=== PATIENT | female | born 1980 | race Caucasian/White ===

== ENCOUNTER 2018-08-21 20:45 | Emergency (ER) | payer BC, MEDICAID ==
[2018-08-21] MEDS ORDERED: Acetaminophen TAB* 325 MG PO ONE (23:25)
[2018-08-21 23:53] LABS: Hematocrit 42 % (35-47); Mean Corpuscular HGB Conc 34 g/dl (31-36); Mean Corpuscular Hemoglobin 33 pg (27-31); Mean Corpuscular Volume 98 fL (80-97); Mean Platelet Volume 7.2 fL (7.4-10.4); Platelet Count 347 10^3/ul (150-450); Red Blood Count 4.23 10^6/ul (4.00-5.40); Red Cell Distribution Width 14 % (10.5-15)
[2018-08-22 00:13] LABS: ALT 7 U/L (7-52); AST 10 U/L (13-39); Albumin/Globulin Ratio 1.2 (1-3); Alkaline Phosphatase 57 U/L (34-104); Anion Gap 7 mmol/L (2-11); BUN/Creatinine Ratio 10.8 (8-20); Blood Urea Nitrogen 7 mg/dL (6-24); C Reactive Protein 16.72 mg/L (<8.01); CO2 Carbon Dioxide 26 mmol/L (22-32); Calcium 9.3 mg/dL (8.6-10.3); Chloride 105 mmol/L (101-111); EGFR Non-African American 101.5 (>60); Globulin 3.3 g/dL (2-4); Glucose 109 mg/dL (70-100); Potassium 4.1 mmol/L (3.5-5.0); Sodium 138 mmol/L (135-145); Total Protein 7.3 g/dL (6.4-8.9)
[2018-08-22] MEDS ORDERED: Iohexol 300* (CONTRAST) 10 ML SDV IV ONE (00:17)
[2018-08-22 00:19] LABS: HCG Pregnancy < 0.60 mIU/mL
[2018-08-22 00:29] LABS: ABS Basophils 0.1 10^3/ul (0-0.2); ABS Eosinophils 0 10^3/ul (0-0.6); ABS Lymphocytes 1.1 10^3/ul (1.0-4.8); ABS Monocytes 0.5 10^3/ul (0-0.8); ABS Neutrophils 9.2 10^3/ul (1.5-7.7); ABS Nucleated RBC 0 10^3/ul
[2018-08-22 00:31] LABS: ABS Neutrophils 9.6 10^3/ul (1.5-7.7); Immature Granulocytes 1 % (0-9); Lymphocytes % 7 %; Monocytes % 3 %; Neutrophil % 86 %; Variant Lymph % 1 % (0-6)
[2018-08-22 00:32] LABS: ABS Basophils 0.2 10^3/ul (0-0.2)
--- NOTE | 2018-08-22 02:33 | ED ---
Respiratory - HPI Summary HPI Summary: Patient with history of cough, low-grade fever, myalgia sent by urgent care to ED for further evaluation of concerning find on chest x-ray. Patient states symptoms 3 days. Denies BURR, ear pain, nasal congestion, neck stiffness, sore throat, CP, SOB, N/V/D, abdominal pain, change in urine, change in BM. Medical history is none. Pack-a-day smoker. - History of Current Complaint Chief Complaint: EDUpperRespComplaint Stated Complaint: COUGH/FEVER Time Seen by Provider: 08/21/18 23:13 Hx Obtained From: Patient Onset/Duration: Lasting Days Timing: Constant Initial Severity: Moderate Current Severity: Moderate Pain Intensity: 4 Character: Cough (Productive) Sputum Amount: Small Sputum Color: Yellow Aggravating Factor(s): Nothing Alleviating Factor(s): Nothing Associated Signs and Symptoms: Fever - Allergy/Home Medications Allergies/Adverse Reactions: Allergies Allergy/AdvReac Type Severity Reaction Status Date / Time No Known Allergies Allergy Verified 08/21/18 21:01 PMH/Surg Hx/FS Hx/Imm Hx Endocrine/Hematology History: Denies: Hx Anticoagulant Therapy Cardiovascular History: Denies: Hx Cardiac Arrest History: Denies: Hx Dialysis Sensory History: Denies: Hx Eye Prosthesis Neurological History: Denies: Hx Developmental Delay Psychiatric History: Denies: Hx Autism Infectious Disease History: No Infectious Disease History: Denies: Traveled Outside the [place] in Last 30 Days - Family History Known Family History: Positive: Unknown - Social History Lives: With Family Alcohol Use: Rare Substance Use Type: Reports: None Smoking Status (MU): Heavy Every Day Tobacco Smoker Review of Systems Positive: Fever Eyes: Negative ENT: Negative Cardiovascular: Negative Positive: Cough Gastrointestinal: Negative Genitourinary: Negative Positive: Myalgia Skin: Negative Neurological: Negative Psychological: Normal All Other Systems Reviewed And Are Negative: Yes Physical Exam Triage Information Reviewed: Yes Vital Signs On Initial Exam: Initial Vitals Temp Pulse Resp BP Pulse Ox 100.5 F 112 20 114/71 99 08/21/18 20:56 08/21/18 20:56 08/21/18 20:56 08/21/18 20:56 08/21/18 20:56 Vital Signs Reviewed: Yes Appearance: Positive: Well-Appearing Skin: Positive: Warm Head/Face: Positive: Normal Head/Face Inspection Eyes: Positive: Normal ENT: Positive: Normal ENT inspection Neck: Positive: Supple Respiratory/Lung Sounds: Positive: Clear to Auscultation Cardiovascular: Positive: Normal Pelvic Exam: Positive: External Exam Normal Musculoskeletal: Positive: Normal Neurological: Positive: Normal Psychiatric: Positive: Normal AVPU Assessment: Alert - [place] Coma Scale Best Eye Response: 4 - Spontaneous Best Motor Response: 6 - Obeys Commands Best Verbal Response: 5 - Oriented Coma Scale Total: 15 Diagnostics - Vital Signs Vital Signs Temp Pulse Resp BP Pulse Ox 08/21/18 23:22 94 98 08/21/18 23:20 106 115/79 98 08/21/18 20:56 100.5 F 112 20 114/71 99 - Laboratory Lab Results: Lab Results 08/21/18 08/21/18 08/21/18 Range/Units 23:40 23:40 23:42 WBC 11.0 H (3.5-10.8) 10^3/ul RBC 4.23 (4.00-5.40) 10^6/ul Hgb 14.0 (12.0-16.0) g/dl Hct 42 (35-47) % MCV 98 H (80-97) fL MCH 33 H (27-31) pg MCHC 34 (31-36) g/dl RDW 14 (10.5-15) % Plt Count 347 (150-450) 10^3/ul MPV 7.2 L (7.4-10.4) fL Neut % (Auto) Not Reportable Lymph % (Auto) Not Reportable [place] % (Auto) Not Reportable Eos % (Auto) Not Reportable Baso % (Auto) Not Reportable Absolute Neuts (auto) 9.2 H (1.5-7.7) 10^3/ul Absolute Lymphs (auto) 1.1 (1.0-4.8) 10^3/ul Absolute Monos (auto) 0.5 (0-0.8) 10^3/ul Absolute Eos (auto) 0 (0-0.6) 10^3/ul Absolute Basos (auto) 0.1 (0-0.2) 10^3/ul Absolute Nucleated RBC 0 10^3/ul Immature Gran % 1 (0-9) % Neutrophils % 86 % Band Neutrophils % 1 (0-8) % Lymphocytes % 7 % Reactive Lymphs % 1 (0-6) % Monocytes % 3 % Basophils % 2 % Nucleated RBC % Not Reportable Abs Neuts (Manual) 9.6 H (1.5-7.7) 10^3/ul Abs Lymphs (Manual) 0.9 L (1.0-4.8) 10^3/ul Abs Monocytes (Manual) 0.3 (0-0.8) 10^3/ul Abs Basophils (Manual) 0.2 (0-0.2) 10^3/ul Normal RBC Morphology Not Reportable Macrocytosis 2+ Hem Pathologist Commnt Pending Sodium 138 (135-145) mmol/L Potassium 4.1 (3.5-5.0) mmol/L Chloride 105 (101-111) mmol/L Carbon Dioxide 26 (22-32) mmol/L Anion Gap 7 (2-11) mmol/L BUN 7 (6-24) mg/dL Creatinine 0.65 (0.51-0.95) mg/dL Est GFR ( Amer) 122.8 (>60) Est GFR (Non-Af Amer) 101.5 (>60) BUN/Creatinine Ratio 10.8 (8-20) Glucose 109 H (70-100) mg/dL Lactic Acid 0.5 (0.5-2.0) mmol/L Calcium 9.3 (8.6-10.3) mg/dL Total Bilirubin 0.50 (0.2-1.0) mg/dL AST 10 L (13-39) U/L ALT 7 (7-52) U/L Alkaline Phosphatase 57 (34-104) U/L C-Reactive Protein 16.72 H (<8.01) mg/L Total Protein 7.3 (6.4-8.9) g/dL Albumin 4.0 (3.2-5.2) g/dL Globulin 3.3 (2-4) g/dL Albumin/Globulin Ratio 1.2 (1-3) Beta HCG, Quant < 0.60 mIU/mL Influenza A (Rapid) (Negative) Influenza B (Rapid) (Negative) 08/21/18 Range/Units 23:43 WBC (3.5-10.8) 10^3/ul RBC (4.00-5.40) 10^6/ul Hgb (12.0-16.0) g/dl Hct (35-47) % MCV (80-97) fL MCH (27-31) pg MCHC (31-36) g/dl RDW (10.5-15) % Plt Count (150-450) 10^3/ul MPV (7.4-10.4) fL Neut % (Auto) Lymph % (Auto) [place] % (Auto) Eos % (Auto) Baso % (Auto) Absolute Neuts (auto) (1.5-7.7) 10^3/ul Absolute Lymphs (auto) (1.0-4.8) 10^3/ul Absolute Monos (auto) (0-0.8) 10^3/ul Absolute Eos (auto) (0-0.6) 10^3/ul Absolute Basos (auto) (0-0.2) 10^3/ul Absolute Nucleated RBC 10^3/ul Immature Gran % (0-9) % Neutrophils % % Band Neutrophils % (0-8) % Lymphocytes % % Reactive Lymphs % (0-6) % Monocytes % % Basophils % % Nucleated RBC % Abs Neuts (Manual) (1.5-7.7) 10^3/ul Abs Lymphs (Manual) (1.0-4.8) 10^3/ul Abs Monocytes (Manual) (0-0.8) 10^3/ul Abs Basophils (Manual) (0-0.2) 10^3/ul Normal RBC Morphology Macrocytosis Hem Pathologist Commnt Sodium (135-145) mmol/L Potassium (3.5-5.0) mmol/L Chloride (101-111) mmol/L Carbon Dioxide (22-32) mmol/L Anion Gap (2-11) mmol/L BUN (6-24) mg/dL Creatinine (0.51-0.95) mg/dL Est GFR ( Amer) (>60) Est GFR (Non-Af Amer) (>60) BUN/Creatinine Ratio (8-20) Glucose (70-100) mg/dL Lactic Acid (0.5-2.0) mmol/L Calcium (8.6-10.3) mg/dL Total Bilirubin (0.2-1.0) mg/dL AST (13-39) U/L ALT (7-52) U/L Alkaline Phosphatase (34-104) U/L C-Reactive Protein (<8.01) mg/L Total Protein (6.4-8.9) g/dL Albumin (3.2-5.2) g/dL Globulin (2-4) g/dL Albumin/Globulin Ratio (1-3) Beta HCG, Quant mIU/mL Influenza A (Rapid) Negative (Negative) Influenza B (Rapid) Negative (Negative) Result Diagrams: 08/21/18 23:42 08/21/18 23:40 Lab Statement: Any lab studies that have been ordered have been reviewed, and results considered in the medical decision making process. - CT chest CT Interpretation Completed By: Radiologist - 4.3 x 4.7 pulmonary Mass in right lower lobe with enlarged subcarinal and right hilar lymph nodes with necrotic center, concerning for malignancy Disposition - Course Course Of Treatment: Patient with history of cough, low-grade fever, myalgia sent by urgent care to ED for further evaluation of concerning find on chest x- ray. Patient states symptoms 3 days. Denies UBRR, ear pain, nasal congestion, neck stiffness, sore throat, CP, SOB, N/V/D, abdominal pain, change in urine, change in BM. Medical history is none. Pack-a-day smoker. Physical exam unremarkable. Initial temperature 100.5, heart rate 112. Vital signs since within normal limits. WBC 11.0. Labs otherwise unremarkable. Influenza negative. CT chest positive for mass concerning for malignancy. Diagnosis viral syndrome. Advised patient follow up with oncology for biopsy of lung mass. Patient understands and approves of plan. - Diagnoses Provider Diagnoses: Viral syndrome, Mass of lung Discharge - Sign-Out/Discharge Documenting (check all that apply): Patient Departure - Discharge Plan Condition: Stable Disposition: HOME Patient Education Materials: Needle Biopsy of the Lung (ED), Viral Syndrome (ED ) Referrals: No Primary Care Phys,NOPCP [Primary Care Provider] - Elle De Santiago MD [Medical Doctor] - Additional Instructions: For viral syndrome drink plenty of fluids to help maintain hydration. Alternate ibuprofen 600 mg with Tylenol 650 mg every 3 hours for body aches and fever control. For biopsy of lung mass follow up with oncology Dr. De Santiago for further evaluation. Return to the ED for any new or worsening symptoms. - Billing Disposition and Condition Condition: STABLE Disposition: Home
[2018-08-22 03:06] VITALS: BP 124/74
== END 2018-08-22 03:05 | disposition home or self-care (01) ==
LOC: ED 20:45
DX: B34.9 Viral infection, unspecified (principal); R91.8 Other nonspecific abnormal finding of lung field; F17.200 Nicotine dependence, unspecified, uncomplicated; R59.0 Localized enlarged lymph nodes
CPT/HCPCS: 36415; 71260; 80053; 83605; 84702; 85025; 85060; 86140; 99282; A9270-GY; Q9967

== ENCOUNTER → 2018-08-27 11:46 | Day surgery (SDC) | payer BC ==
[~2018-08-27 11:46] MED LIST: Atracurium* 10 MG/ML 10 ML VIAL ONE; Buffered Lidocaine 0.9% SYRIN* 5 ML/SYR SYRINGE INTRADERM ONE; Dexamethasone IV* 4 MG/ML 1 ML (4 MG) IV SLOW PU ONE; Dexamethasone IV* 4 MG/ML 1 ML (4 MG) ONE; DiMENhydriNATE IV* 50 MG/ML VIAL IV PUSH PRN; Famotidine IV* 10 MG/ML 2 ML (20 mg) IV SLOW PU ONE; Famotidine IV* 10 MG/ML 2 ML (20 mg) ONE; Lactated Ringers 1000 ML Bag* 1,000 ML IV SCH; Levalbuterol 0.63MG/3ML NEB* UNIT OF USE INH ONE; Levalbuterol 1.25MG/0.5ML NEB ONE; Lidocaine 2% PF * 5 ML VIAL ONE; Metoprolol Tartrate IV* 1 MG/ML 5 ML VIAL ONE; Midazolam* 1 MG/ML 5 ML VIAL (5 MG) ONE; Naloxone* 0.4 MG/ML 1 ML VIAL IV PRN; Ondansetron INJ* 2 MG/ML VIAL IV PRN; Ondansetron INJ* 2 MG/ML VIAL ONE; Propofol* 10 MG/ML 20 ML BTL ONE; Scopolamine 1.5 mg* PATCH TRANSDERM PRN; fentaNYL* 50 MCG/ML 2 ML VIAL (100 MCG VIAL) IV PRN; fentaNYL* 50 MCG/ML 5 ML VIAL (250 MCG VIAL) ONE; oxyCODONE/Acetamin 5/325 MG* TAB PO PRN
[2018-08-27 15:19] VITALS: BP 117/80
--- NOTE | 2018-08-27 21:05 | PRO ---
BRONCHOSCOPY REPORT: DATE OF PROCEDURE: 08/27/18 - [facility] PROCEDURE PERFORMED: Bronchoscopy with endobronchial ultrasound-guided fine needle aspiration from station 7 and L4 lymph node. PREPROCEDURAL DIAGNOSIS: Lung mass, mediastinal adenopathy. POSTPROCEDURAL DIAGNOSIS: Lung cancer. ANESTHESIA: General anesthesia. ANESTHESIOLOGIST: Dr. Pena. DESCRIPTION OF PROCEDURE: Informed consent was obtained from the patient prior to the procedure after all the risks and benefits were thoroughly explained. The patient recently was being evaluated for cough, was found to have large lung mass. Appropriate time-out was agreed on by attending staff prior to the procedure. The patient was lying supine on operating room table. Flexible bronchoscope was then inserted through ET tube, ET tube positioning was confirmed to be 2 cm above the level of ewa. Bronchoscope was then advanced into the right bronchial tree, which was then inspected. Thick clear secretions were noted copious amounts on both sides and were suctioned out. No endobronchial lesions were noted. Bronchoscope was then advanced to left bronchial tree, which was inspected. No endobronchial lesions were noted. Thin secretions were noted and were suctioned. All airways were open and patent. Bronchoscope was then withdrawn and EBUS bronchoscope was inserted. Station 7 lymph node appeared to be significantly enlarged. Station 7 was then sampled with 6 passes. Rapid on-site evaluation revealed lymphatic tissue and malignant cells. Rest of specimen was placed in formalin for cell block. Bronchoscope was then advanced into the left bronchial tree and lymph nodes were inspected. No significantly enlarged lymph nodes were noted. L4 was minimally enlarged and measured about 0.4 cm and which was accessed with 2 passes. Rapid on-site evaluation revealed lymphatic tissue with no malignant cells. Rest of the specimen was placed in formalin. Bronchoscope was then withdrawn and regular bronchoscope was inserted for any bleeding. No significant bleeding noted and secretions were suctioned and bronchoscope was withdrawn. The patient was extubated and seen in Recovery in optimal condition. [id number]/[facility] #: [id number] [facility]
== END | disposition home or self-care (01) ==
LOC: OR 11:46
PROVIDERS: ATTEND Internal Medicine
DX: C77.1 Secondary and unspecified malignant neoplasm of intrathoracic lymph nodes (principal); C34.90 Malignant neoplasm of unspecified part of unspecified bronchus or lung; F17.210 Nicotine dependence, cigarettes, uncomplicated; R00.2 Palpitations; Z88.0 Allergy status to penicillin
CPT/HCPCS: 81445; 88172; 88173; 88177; 88305; 88341; 88342; 88360; A9270-GY; J1100; J2250; J2405; J2704; J3010; J3490

== ENCOUNTER 2018-09-10 11:10 | Day surgery (SDC) | payer BC ==
[~2018-09-10 11:10] MED LIST changes: +Acetaminophen TAB* 325 MG PO ONE; -Atracurium* 10 MG/ML 10 ML VIAL ONE; -Buffered Lidocaine 0.9% SYRIN* 5 ML/SYR SYRINGE INTRADERM ONE; +Buffered Lidocaine 1% SYRIN* 1 ML/SYRINGE INTRADERM ONE; -Dexamethasone IV* 4 MG/ML 1 ML (4 MG) IV SLOW PU ONE; -Dexamethasone IV* 4 MG/ML 1 ML (4 MG) ONE; -DiMENhydriNATE IV* 50 MG/ML VIAL IV PUSH PRN; -Famotidine IV* 10 MG/ML 2 ML (20 mg) IV SLOW PU ONE; -Famotidine IV* 10 MG/ML 2 ML (20 mg) ONE; -Levalbuterol 0.63MG/3ML NEB* UNIT OF USE INH ONE; -Levalbuterol 1.25MG/0.5ML NEB ONE; -Lidocaine 2% PF * 5 ML VIAL ONE; -Metoprolol Tartrate IV* 1 MG/ML 5 ML VIAL ONE; -Midazolam* 1 MG/ML 5 ML VIAL (5 MG) ONE; -Naloxone* 0.4 MG/ML 1 ML VIAL IV PRN; -Ondansetron INJ* 2 MG/ML VIAL IV PRN; -Ondansetron INJ* 2 MG/ML VIAL ONE; -Propofol* 10 MG/ML 20 ML BTL ONE; -Scopolamine 1.5 mg* PATCH TRANSDERM PRN; -fentaNYL* 50 MCG/ML 2 ML VIAL (100 MCG VIAL) IV PRN; -fentaNYL* 50 MCG/ML 5 ML VIAL (250 MCG VIAL) ONE; -oxyCODONE/Acetamin 5/325 MG* TAB PO PRN
[2018-09-10] MEDS ORDERED: fentaNYL* 50 MCG/ML 2 ML VIAL (100 MCG VIAL) ONE (11:26)
[2018-09-10] MEDS ORDERED: Midazolam* 1 MG/ML 2 ML VIAL (2 MG) ONE ×2 (11:26→12:39)
[2018-09-10] MEDS ORDERED: Lidocain 1% EPI 1:100,000 * 30 ML MDV ONE (11:29)
[2018-09-10] MEDS ORDERED: Lidocaine 1% INJ* 10 MG/ML 30 ML SDV ONE (11:32)
[2018-09-10] MEDS ORDERED: Clindamycin 900 MG/D5W BAG(*) 900 MG/50 ML BAG IVPB ONE (11:44)
[2018-09-10] MEDS ORDERED: Buffered Lidocaine 1% SYRIN* 1 ML/SYRINGE INTRADERM ONE (11:44)
[2018-09-10] MEDS ORDERED: Acetaminophen TAB* 325 MG ONE (11:44)
[2018-09-10] MEDS ORDERED: Famotidine IV* 10 MG/ML 2 ML (20 mg) ONE (12:16)
[2018-09-10] MEDS ORDERED: Ondansetron INJ* 2 MG/ML VIAL IV PRN (12:46)
[2018-09-10] MEDS ORDERED: Naloxone* 0.4 MG/ML 1 ML VIAL IV PRN (12:46)
[2018-09-10] MEDS ORDERED: DiMENhydriNATE IV* 50 MG/ML VIAL IV PUSH PRN (12:46)
[2018-09-10] MEDS ORDERED: diPHENhydraMINE IV* 50 MG/ML 1 ml VIAL (BENADRYL) IV PRN (12:46)
[2018-09-10] MEDS ORDERED: Acetaminophen TAB* 325 MG PO PRN (12:46)
[2018-09-10] MEDS ORDERED: PROCHLORPERAZINE INJ 5 MG/ML 2 ML VIAL IV PRN (12:46)
[2018-09-10] MEDS ORDERED: Levalbuterol 0.63MG/3ML NEB* UNIT OF USE INH PRN (12:46)
[2018-09-10] MEDS ORDERED: Propofol* 10 MG/ML 20 ML BTL ONE (12:59)
[2018-09-10] MEDS ORDERED: Lidocaine 2% PF * 5 ML VIAL ONE (12:59)
[2018-09-10] MEDS ORDERED: Ondansetron INJ* 2 MG/ML VIAL ONE (12:59)
[2018-09-10] MEDS ORDERED: oxyCODONE TAB* 5 MG TAB PO PRN (13:34)
--- NOTE | 2018-09-10 13:36 | BRIEFOPN ---
Brief Operative Note - Surgery Procedures: PRE/POSTOP DX: LUNG CA PROC: POWERPORT PLACEMENT SURG: MECENAS ASSIST: NONE ANES: LOCAL/MAC; MATT SPEC: NONE DRAIN/COMPL: NONE COND: STABLE TO RR FIND: LEFT SUBCLAVIAN PORT PLACED WITHOUT DIFFICULTY.
[2018-09-10 14:10] VITALS: BP 115/81
--- NOTE | 2018-09-30 20:14 | OP ---
CC: [facility] * DATE OF OPERATION: 09/10/18 - SDS DATE OF : 78 SURGEON: Dereck Laird MD DIET SUPERVISOR: None. ANESTHESIOLOGIST: Dr. Robert. ANESTHESIA: Local MAC. PRE-OP DIAGNOSES: Lung cancer. POST-OP DIAGNOSES: Lung cancer. OPERATIVE PROCEDURE: PowerPort placement. ESTIMATED BLOOD LOSS: Minimal. IV FLUIDS: Crystalloid. SPECIMENS: None. DRAINS: None. COMPLICATIONS: None. COUNTS: The instrument, needle, and sponge counts were correct. DESCRIPTION OF PROCEDURE: The patient was brought to the operating room and placed on the table supine. Sequential compression devices were placed in both lower extremities. The patient was administered intravenous sedation. Her chest and neck were prepped and draped in the usual sterile fashion and time- out was performed. Local anesthetic was infiltrated into the left chest using a left subclavian approach. After accessing the left subclavian vein without difficulty, a guidewire was placed into the superior vena cava confirmed under fluoroscopic guidance. Needle was removed and then additional local anesthetic was infiltrated into the skin and soft tissue and a pocket was created for the PowerPort in the left upper chest. The 8-[place] PowerPort was then back tunneled to the pocket having made a counter incision at the guidewire insertion site. The peel-away sheath and dilator were then advanced under fluoroscopic guidance over the guidewire into the superior vena cava. The guidewire and dilator were removed. The catheter was then advanced into the superior vena cava with the tip position at the atriocaval junction under fluoroscopic guidance. The catheter was cut to an appropriate length and connected this to the PowerPort, which was then placed into the pocket and secured with a single suture of 2-0 Prolene. The port was accessed, it pacheco and flushed easily. The pocket was closed in two layers with 3-0 Vicryl for the subcutaneous tissue, 4-0 Monocryl for the skin. The port was flushed with heparinized saline. Tegaderm dressing was applied. The patient tolerated the procedure well, was awakened and transferred to the recovery room in stable condition. [id number]/[facility] #: [id number] [facility]
== END 2018-09-10 14:14 | disposition home or self-care (01) ==
LOC: OR 11:10
PROVIDERS: ATTEND Surgery
DX: C34.31 Malignant neoplasm of lower lobe, right bronchus or lung (principal); Z87.891 Personal history of nicotine dependence; R00.2 Palpitations; F41.9 Anxiety disorder, unspecified
CPT/HCPCS: 71045; 76000; A9270-GY; C1788; J1642; J2250; J2405; J2704; J3010